=== PATIENT | male | born 1945 | race African-American/Black ===

== ENCOUNTER 2024-01-17 17:30 | Emergency (ER) | payer OTHER, MEDICARE ==
[~2024-01-17] VITALS: Ht 180.3 cm; Wt 68.0 kg
[2024-01-17 17:34] VITALS: BP_SYST 115; PULSE 132; RESP 18; TEMP 97.2; O2SAT 99
[2024-01-17 18:32] LABS: BASOPHILS % (AUTO) 0.2 % (0.0-2.0); EOSINOPHILS % (AUTO) 0.2 % (0.0-4.0); HEMATOCRIT 25.8 % (36-54); HEMOGLOBIN 8.5 g/dL (14.0-18.0); LYMPHOCYTES # (AUTO) 0.9 K/uL (1.0-5.5); LYMPHOCYTES % (AUTO) 8.4 % (20.5-51.5); MEAN CORPUSCULAR HEMOGLOBIN 20 pg (27-31); MEAN CORPUSCULAR HGB CONC 33 % (32-36); MEAN CORPUSCULAR VOLUME 60 fL (79.0-98.0); MONOCYTES # (AUTO) 0.9 K/uL (0.0-1.0); MONOCYTES % (AUTO) 8.5 % (1.7-9.3); NEUTROPHILS # (AUTO) 9.2 K/uL (1.8-7.7); NEUTROPHILS % (AUTO) 82.7 % (40.0-70.0); PLATELET COUNT (AUTO) 216 K/uL (130-430); RED BLOOD CELL COUNT(AUTO) 4.27 MIL/uL (4.2-6.2); RED CELL DISTRIBUTION WIDTH 18.2 % (9.0-15.0); WHITE BLOOD COUNT (AUTO) 11.1 K/uL (4.8-10.8)
[2024-01-17 19:06] LABS: ANION GAP 8 (5-15); CALCIUM 8.1 mg/dL (8.4-11.0); CARBON DIOXIDE 25 mmol/L (23-29); CHLORIDE 99 mmol/L (98-107); CREATININE 1.15 mg/dL (0.55-1.30); GLUCOSE 90 mg/dL (74-106); POTASSIUM 3.9 mmol/L (3.5-5.1); SODIUM SERUM 132 mmol/L (136-145); UREA NITROGEN, BLOOD 13 mg/dL (8-21)
[2024-01-17 19:11] LABS: ANISOCYTOSIS 2+
[2024-01-17 19:12] LABS: TARGET CELLS MODERATE
[2024-01-17 19:24] LABS: INR 1.4 (0.80-1.20)
[2024-01-17] MEDS ORDERED: cefTRIAXone 1 GM VIAL ONE (20:02)
[2024-01-17] MEDS: cefTRIAXone 1 GM in D5W 50 ML IV ONE (20:27)
[2024-01-17] MEDS: NACL 0.9% 1,000 ML IV ONE (20:27)
[2024-01-17] MEDS ORDERED: NS 500 ML IV ONE (20:30)
[2024-01-17 21:16] VITALS: BP_SYST 118; PULSE 77; RESP 18; TEMP 98.1; O2SAT 98
== END 2024-01-17 21:13 | disposition home or self-care (01) ==
LOC: SED 17:30
DX: R22.1 Localized swelling, mass and lump, neck (principal); R13.10 Dysphagia, unspecified
CPT/HCPCS: 99285; 96365; 70491; 80048; 85025; 85610; 85730; 87040; 36415; 83605; J0696; Q9967